=== PATIENT | male | born 1950 | race Two or more races ===

== ENCOUNTER 2024-09-06 04:23 | Day surgery (SDC) | payer OTHER ==
[2024-09-02 11:30] VITALS: BMI 27.9
[~2024-09-06 04:23] MED LIST: ACETAMINOPHEN 500 MG TABLET (FP) PO PRN
[2024-09-06] MEDS ORDERED: BUPIVACAINE HCL/PF 0.5% (5MG/ML) 10 ML VIAL ONE (07:41)
[2024-09-06] MEDS ORDERED: LIDOCAINE HCL/PF 1% SDV 5ML VIAL ONE (07:41)
[2024-09-06] MEDS: BUPIVACAINE HCL/PF 0.5% (5 MG/ML) 30 ML VIAL IJ ONE (15:47)
[2024-09-06 16:03] VITALS: BP 123/74; PULSE 75; RESP 16; TEMP 97.3
== END 2024-09-06 17:23 | disposition home or self-care (01) ==
LOC: JASU-SURG 04:23
PROVIDERS: ATTEND Pain Medicine Pain Medicine
PROC: 3E0T33Z Introduction of Anti-inflammatory into Peripheral Nerves and Plexi, Percutaneous Approach (ICD-10-PCS; 2024-09-06)
PROC: 3E0T3BZ Introduction of Anesthetic Agent into Peripheral Nerves and Plexi, Percutaneous Approach (ICD-10-PCS; principal; 2024-09-06 15:39)
DX: M47.812 Spondylosis without myelopathy or radiculopathy, cervical region (principal)
CPT/HCPCS: 76000-TC-FY